=== PATIENT | female | born 1955 | race Caucasian/White ===

== ENCOUNTER → 2016-11-19 | Outpatient (CLI) | payer OTHER ==
[~2016-11-19] MED LIST: BLACK COHASH; SKELAXIN; SOMA; ULTRAM
--- NOTE | ~2016-11-19 | MY11 ---
[facility] A Service of [facility] RADIOLOGY TEXT RESULTS PATIENT: VERONICA KRUEGER LOCATION: [facility] : 55 UNIT #: [id number] AGE: [address]: TONA CAMPOS APR SEX: F ORDER DR: [id number] [facility] [address] [place], [place] [address] [id number] O MR#: [id number] Acc #: [id number] NAME: VERONICA KRUEGER : 1955 SEX: F STUDY DATE/TIME: 11/19/2016 14:56 UNIT: [facility] ROOM: STUDY DESCRIPTION: MY Mammogram Screening [facility] Attending Physician: Tona Campos Aprn Ordering Physician: Tona Campos Aprn Primary Care Physician: Tona Campos Aprn MEDICAL IMAGING REPORT This report is preliminary unless electronic signature is present EXAM Bilateral Digital Screening Mammogram with CAD INDICATION Breast cancer screening. 61-year-old asymptomatic female. No personal or family history of breast cancer. COMPARISON 04/29/2015, 04/24/2014, 04/20/2013, 01/10/2009, 12/19/2007, 12/06/2006, 09/28/2005, 07/30/2004 FINDINGS There are scattered fibroglandular tissues. No suspicious findings are present. IMPRESSION No mammographic evidence of malignancy. Annual screening mammography and clinical breast exam are recommended. A result letter will be sent to the patient. Patients over the age of 40 are entered into a reminder system with target due date for the next mammogram. BIRADS: 1 Negative Dictated by... Yusuf Nuñez M.D. THIS IS AN ELECTRONICALLY VERIFIED REPORT Yusuf Nuñez M.D. at 11/23/2016 5:46 PM Kathia [facility] A Service of [facility] RADIOLOGY TEXT RESULTS PATIENT: VERONICA KRUEGER [id number] : 55 UNIT #: [id number] AGE: [address]: TONA CAMPOS APR SEX: F ORDER DR: TD: 11/19/2016 17:43 JOB #: [id number] MEDICAL IMAGING REPORT Page 1 of 1 COPY
== END | disposition home or self-care (01) ==
LOC: CWCC 14:48
DX: Z12.31 Encounter for screening mammogram for malignant neoplasm of breast (principal)
CPT/HCPCS: G0202